=== PATIENT | male | born 1945 | race Caucasian/White ===

== ENCOUNTER → 2021-01-22 | Outpatient (CLI) | payer MEDICARE, SELFPAY ==
[2021-01-22 10:45] VITALS: BMI 26.4
[2021-01-22 13:08] LABS: Bacteria 0 SEEN /hpf (None Seen); Mucous, Urine 0 SEEN /hpf (<or=2+); Red Blood Cells-Urine 0 SEEN /hpf (0-5); White Blood Cells 0 SEEN /hpf (0-5)
[2021-01-22 15:20] LABS: Color, Urine Yellow (Yellow); Glucose, Dipstick Normal (Normal); Ketone-Dipstick Negative (Negative); Leukocyte Esterase-Dipstick Negative /ul (Negative); Nitrite-Dipstick Negative (Negative); Occult Blood-Urine Negative /ul (Negative); Protein-Dipstick Negative (Negative); Urine Bilirubin Dipstick Negative (Negative); Urine Clarity Sl. Cloudy (Clear); Urine Urobilinogen Normal (Normal); Urine pH 6.5 (5.0 - 8.0)
[2021-01-22 15:27] LABS: Squamous Epithelial Cells - UA 0-5 SEEN /hpf (0-5)
== END | disposition home or self-care (01) ==
LOC: LABSPEC 13:01
PROVIDERS: PCP Internal Medicine; Referring Provider Internal Medicine; Visit Provider Internal Medicine
DX: I10 Essential (primary) hypertension (principal)
CPT/HCPCS: 81001

== ENCOUNTER → 2021-01-30 11:32 | Outpatient (CLI) | payer MEDICARE, SELFPAY ==
[2021-01-22 10:45] VITALS: BMI 26.4
--- NOTE | 2021-01-30 11:36 | US_ITS ---
STUDY: RENAL ULTRASOUND - COMPLETE REASON FOR EXAM: Male, 75 years old. right upper pole nodule seen CT TECHNIQUE: Ultrasound evaluation of the kidneys was performed with real-time and static parsons-scale imaging. COMPARISON: None. FINDINGS: RIGHT KIDNEY: Normal location of the right kidney, which is normal in size. The right kidney measures 12.4 cm. There is a normal cortex of the right kidney. The renal cortex measures 1.6 cm. There is a 1 cm right renal upper pole simple cyst and 1.1 x 0.9 cm cyst in the midpole.. There are no right renal calculi. There is no right hydronephrosis. DISTAL RIGHT URETER: There is non-visualization of the distal right ureter. There is no demonstrated right ureterovesical junction calculus. There is a visualized right ureteral jet. LEFT KIDNEY: Normal location of the left kidney, which is normal in size. The left kidney measures 11.5 cm. There is a normal cortex of the left kidney. The renal cortex measures 1.4 cm. There is no left renal mass or cyst. There are no left renal calculi. There is no left hydronephrosis. DISTAL LEFT URETER: There is non-visualization of the distal left ureter. There is no demonstrated left ureterovesical junction calculus. There is a visualized left ureteral jet. I.V.C.: The IVC is patent. BLADDER: The distended urinary bladder has a volume of 550 ml. Patient did not void. There is a normal wall thickness of the distended urinary bladder. There is no demonstrated mass within the urinary bladder. There are no demonstrated bladder calculi. US/Kidney and Bladder IMPRESSION: Normal ultrasound of the kidneys and urinary bladder. Small right renal simple cysts Electronically Signed: Angelina Coto MD at 17:12 EDT Tel , Service support ,
== END ==
PROVIDERS: PCP Internal Medicine; Referring Provider Internal Medicine; Visit Provider Internal Medicine
DX: N28.89 Other specified disorders of kidney and ureter (principal)
CPT/HCPCS: 76770

== ENCOUNTER 2021-07-20 18:25 | Outpatient (CLI) | payer MEDICARE, OTHER, SELFPAY ==
[2021-07-20 18:52] VITALS: BP 128/67; PULSE 90; RESP 20; TEMP 36.7; O2SAT 98; BMI 26.4
[2021-07-20] MEDS: 0.9% Saline Lock 10 ML Syringe IV (18:56)
[2021-07-20 19:36] VITALS: BP 134/66; PULSE 82; RESP 16; TEMP 36.7; O2SAT 96
[2021-07-20 20:32] VITALS: BP 142/71; PULSE 82; RESP 18; TEMP 36.8; O2SAT 96
== END 2021-07-20 20:40 | disposition home or self-care (01) ==
LOC: MS3OUT 18:26 → MS3 18:27
PROVIDERS: PCP Internal Medicine; Referring Provider Nurse Practitioner Acute Care; Visit Provider Nurse Practitioner Acute Care
DX: Z23 Encounter for immunization (principal); U07.1 COVID-19
CPT/HCPCS: J7050; M0245; Q0245; A4216